=== PATIENT | male | born 1990 | race Two or more races ===

== ENCOUNTER 2021-05-17 22:10 | Emergency (ER) | payer MEDICAID ==
[~2021-05-17] VITALS: Ht 175.3 cm; Wt 72.6 kg
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
--- NOTE | 2021-05-17 22:45 | NUR ---
covid swab sent to lab
[2021-05-17 22:47] LABS: BASOPHILS # (AUTO) 0.1 K/uL (0.0-0.2); BASOPHILS % (AUTO) 0.9 % (0.0-2.0); EOSINOPHILS % (AUTO) 1.5 % (0.0-6.0); HEMATOCRIT 43 % (39-51); HEMOGLOBIN 14.6 g/dL (13.5-17.5); LYMPHOCYTES # (AUTO) 1.5 K/uL (0.8-4.8); LYMPHOCYTES % (AUTO) 15.7 % (20.0-44.0); MEAN CORPUSCULAR HGB CONC 34 g/dl (31.0-36.0); MEAN CORPUSCULAR VOLUME 90 fL (80-96); MONOCYTES % (AUTO) 10.2 % (2.0-12.0); NEUTROPHILS # (AUTO) 6.7 K/uL (1.8-8.9); NEUTROPHILS % (AUTO) 71.7 % (43.0-81.0); PLATELET COUNT (AUTO) 361 K/uL (150-450); WHITE BLOOD COUNT (AUTO) 9.4 K/uL (4.3-11.0)
[2021-05-17 23:00] LABS: ALANINE AMINOTRANSFERASE 104 U/L (12-78); ALKALINE PHOSPHATASE 67 U/L (46-116); ASPARTATE AMINOTRANSFERASE 81 U/L (15-37); BILIRUBIN,DIRECT 0.2 mg/dL (0.0-0.2); BILIRUBIN,TOTAL 0.5 mg/dL (0.2-1.0); CALCIUM, SERUM 9.3 mg/dL (8.5-10.1); CARBON DIOXIDE 23 mmol/L (21-32); CHLORIDE 102 mmol/L (98-107); CREATININE 1.3 mg/dL (0.6-1.3); GLUCOSE 140 mg/dL (74-106); SODIUM SERUM 137 mmol/L (136-145); TOTAL PROTEIN, SERUM 7.4 g/dL (6.4-8.2); UREA NITROGEN, BLOOD 10 mg/dL (7-18)
[2021-05-17 23:04] LABS: ACETAMINOPHEN 0 ug/ml (10-30); ALCOHOL, BLOOD < 3 mg/dL (0-0)
[2021-05-17 23:05] LABS: POTASSIUM 2.8 mmol/L (3.5-5.1)
[2021-05-17] MEDS ORDERED: POTASSIUM CHLORIDE 20 MEQ TAB.PRT.SR PO ONE ×2 (23:30)
[2021-05-17 23:51] LABS: BILIRUBIN,URINE SMALL (NEGATIVE); COLOR,URINE DARK YELLOW (YELLOW); LEUKOCYTE ESTERASE ,URINE Negative (NEGATIVE); NITRITE, URINE Negative (NEGATIVE); PH,URINE 5.5 (5.0-8.0); PROTEIN,URINE 100 mg/dl (NEGATIVE); UGLUCOSE Negative (NEGATIVE); UROBILINOGEN,URINE 0.2 EU/dL (0.2)
[2021-05-18] MEDS ORDERED: POTASSIUM CHLORIDE 20 MEQ TAB.PRT.SR PO ONE (00:39)
--- NOTE | 2021-05-18 01:05 | NUR ---
Fatuma perez in [facility] - 05/18/21 at 0231 by LAURA taken to ct
--- NOTE | 2021-05-18 04:45 | NUR ---
SPOKE TO [facility] INTAKE. REC'D CLINICALS. PER ART, HE WILL CALL ONCE ACCEPTED
--- NOTE | 2021-05-18 07:10 | NUR ---
Gave report to CLOVER Valle for tc
--- NOTE | 2021-05-18 07:51 | NUR ---
Awake, cooperative/conversant to simple questions. NO acute distress VS. Breakfast given
--- NOTE | 2021-05-18 08:40 | NUR ---
[facility] PT ACCEPTED [facility] UNDER DR. DANIELS & BRITANY PLEASE CALL [phone] FOR REPORT.
--- NOTE | 2021-05-18 09:39 | NUR ---
CALLED TRANSP[facility] ETA 30
[2021-05-18 10:56] VITALS: BP 129/76
== END 2021-05-18 10:59 ==
LOC: ER 22:13
DX: F20.9 Schizophrenia, unspecified (principal); E87.6 Hypokalemia; F12.10 Cannabis abuse, uncomplicated; Z91.14 Patient's other noncompliance with medication regimen; Z20.822 Contact with and (suspected) exposure to COVID-19
CPT/HCPCS: 36415; 80048; 80076; 80143; 80307; 80320; 81003; 85025; 87426; 99285; C9803; G0480

== ENCOUNTER 2022-07-02 13:10 | Emergency (ER) | payer MEDICAID ==
[~2022-07-02] VITALS: Ht 175.3 cm; Wt 72.6 kg
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
--- NOTE | 2022-07-02 13:43 | NUR ---
Dario therapist [phone]
--- NOTE | 2022-07-02 13:53 | NUR ---
[employer] AT BEDSIDE TALKING TO PATIENT.
[2022-07-02 15:00] VITALS: BP 128/67
--- NOTE | 2022-07-02 15:11 | NUR ---
Patient eloped from facility. Dr. Shaw notified.
== END 2022-07-02 15:28 | disposition left against medical advice (07) ==
LOC: ER 14:45
DX: Z53.21 Procedure and treatment not carried out due to patient leaving prior to being seen by health care provider (principal); R51.9 Headache, unspecified; R22.0 Localized swelling, mass and lump, head

== ENCOUNTER 2022-11-02 01:34 | Emergency (ER) | payer MEDICAID, OTHER ==
[~2022-11-02] VITALS: Ht 180.3 cm; Wt 68.0 kg
[2022-11-02 01:49] VITALS: BP 130/74
[2022-11-02] MEDS ORDERED: LORAZEPAM INJ 2 MG/ML VIAL ONE (03:56)
[2022-11-02] MEDS ORDERED: LORAZEPAM INJ 2 MG/ML VIAL IM ONE (04:00)
--- NOTE | 2022-11-02 05:13 | NUR ---
PT WAS DISCHARGED TO [facility] IN STABLE CONDITION.
== END 2022-11-02 05:15 ==
LOC: ER 01:46
DX: R07.81 Pleurodynia (principal); F20.9 Schizophrenia, unspecified
CPT/HCPCS: 99283; 96372; 71100; J2060